=== PATIENT | female | born 1970 | race Caucasian/White ===

== ENCOUNTER 2019-08-14 23:54 | Emergency (ER) | payer SELFPAY ==
--- NOTE | 2019-08-15 01:12 | PDOC ---
Attending Attestation - Resident Resident Name: Saurabh Henderson - ED Attending Attestation I have performed the following: I have examined & evaluated the patient, The case was reviewed & discussed with the resident, I agree w/resident's findings & plan - HPI HPI: 08/15/19 20:57 see resident hpi - Physicial Exam PE: 08/15/19 20:57 agree with resident exam - Medical Decision Making 08/15/19 20:58 48-year-old female with intermittent chest pain, resolved, positional Cardiac enzymes negative x2 CTA of the chest shows no acute abnormality We will DC with recommended outpatient follow-up 08/15/19 20:58
--- NOTE | 2019-08-15 01:19 | PDOC ---
History of Present Illness - General Chief Complaint: Shortness of Breath Stated Complaint: DIFF. BREATHING Time Seen by Provider: 08/15/19 01:11 History Source: Patient Exam Limitations: No Limitations - History of Present Illness Initial Comments: 48 yo F with no past medical history presents to the emergency department with SOB with chest tightness with sudden onset that began overnight. Per the patient , she states it was located in the left chest wall and felt like a pressure without radiation. In addition, she had SOB, nasal congestion, and cough. Her son recently had a URI and she is up to date on her influenza vaccine. Denies recent travels, recent immbolizations, hx of DVT/PE, and recent surgeries. Denies the following: fever, chills, nausea, vomiting, abdominal pain, back pain , dysuria, hematuria, diarrhea, hematochezia, and leg swelling. Allergies: NDKA Past History - Past Medical History Allergies/Adverse Reactions: Allergies Allergy/AdvReac Type Severity Reaction Status Date / Time No Known Allergies Allergy Verified 08/15/19 01:22 Home Medications: Ambulatory Orders NK [No Known Home Medication] 08/15/19 Review of Systems - Review of Systems Able to Perform ROS?: Yes Is the patient limited Kiswahili proficient: No Constitutional: Yes: Weakness. No: Chills, Diaphoresis, Fever HEENTM: Yes: Nose Congestion. No: Eye Pain, Ear Pain, Nose Pain, Throat Pain, Mouth Pain Respiratory: Yes: Cough, Shortness of Breath. No: Hemoptysis Cardiac (ROS): Yes: Chest Pain. No: Lightheadedness, Palpitations, Syncope ABD/GI: No: Constipated, Diarrhea, Nausea, Rectal Bleeding, Vomiting, Tarry Stools : No: Burning, Dysuria, Hematuria Musculoskeletal: No: Back Pain, Joint Pain, Neck Pain Integumentary: No: Bruising, Erythema, Rash Neurological: No: Headache Psychiatric: Yes: Anxiety. No: Change in Appetite Endocrine: No: Flushing, Unexplained Weight Loss Hematologic/Lymphatic: No: Anemia *Physical Exam - Physical Exam General Appearance: Yes: Nourished, Appropriately Dressed. No: Apparent Distress, Intoxicated HEENT: positive: EOMI, KAVYA, Normal Voice, Symmetrical, TMs Normal, Pharynx Normal, Nasal Congestion, Hearing Grossly Normal. negative: Pale Conjunctivae, Scleral Icterus (R), Scleral Icterus (L), Muffled/Hoarse voice, Pharyngeal Erythema, Tonsillar Exudate, Tonsillar Erythema, Rhinorrhea, Sinus Tenderness, Excessive drooling Neck: positive: Trachea midline, Supple. negative: Tender, Lymphadenopathy (R) , Lymphadenopathy (L), Tender lateral, Tender midline Respiratory/Chest: positive: Lungs Clear, Normal Breath Sounds. negative: Chest Tender, Respiratory Distress, Accessory Muscle Use, Crackles, Rales Cardiovascular: positive: Regular Rhythm, Regular Rate, S1, S2. negative: Systolic Murmur Gastrointestinal/Abdominal: positive: Normal Bowel Sounds, Flat, Soft. negative : Tender Lymphatic: negative: Adenopathy Musculoskeletal: positive: Normal Inspection. negative: CVA Tenderness, Vertebral Tenderness Extremity: positive: Normal Capillary Refill, Normal Inspection, Normal Range of Motion, Calf Tenderness (left leg). 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 NML intact, Fully Oriented, Alert, Normal Mood/ Affect, Normal Response, Motor Strength 5/5 Heart Score/ECG Review - History History: Slightly suspicious - Electrocardiogram EKG: Normal - Age Age: 45-65 - Risk Factors Risk Factors Heart Score: Yes Hx Obesity Based on the list above the patient has:: 1-2 risk factors - Troponin Troponin: </= normal limit - Score Heart Score - Total: 2 ED Treatment Course - LABORATORY CBC & Chemistry Diagram: 08/15/19 01:56 08/15/19 01:56 Medical Decision Making - Medical Decision Making 48 yo F with no past medical history presents to the emergency department with SOB with chest tightness with sudden onset that began overnight. Initial vitals: Initial Vital Signs Temp Pulse Resp BP Pulse Ox 98.1 F 71 18 137/64 100 08/14/19 23:55 08/14/19 23:55 08/14/19 23:55 08/14/19 23:55 08/14/19 23:55 Work up: patient presents with SOB CP and cough. Ddx: ACS vs pNA vs URI vs PE vs asthma exacerbation. patient has no wheezing on exam and is aerating well without tachypnea. Patient will receive laboratory work and imaging to rule out ACS and PE. Laboratory Tests 08/15/19 08/15/19 08/15/19 01:56 01:56 02:24 WBC 10.3 H RBC 4.60 Hgb 9.4 L Hct 30.1 L MCV 65.5 L MCH 20.5 L MCHC 31.2 L RDW 21.2 H Plt Count 436 H MPV 7.9 Absolute Neuts (auto) 7.2 Neutrophils % 69.8 Lymphocytes % 19.3 Monocytes % 7.7 Eosinophils % 2.6 Basophils % 0.6 Nucleated RBC % 0 Hypochromia 0 Platelet Estimate Normal Polychromasia 1+ Poikilocytosis 1+ Anisocytosis 1+ Microcytosis 1+ Macrocytosis 0 Spherocytes 1+ Target Cells 1+ Ovalocytes 1+ [place] Cells 1+ Acanthocytes (Spur) 1+ PT with INR INR Sodium 140 Potassium 4.3 Chloride 108 H Carbon Dioxide 24 Anion Gap 7 L BUN 12.1 Creatinine 0.7 Est GFR (CKD-EPI)AfAm 119.58 Est GFR (CKD-EPI)NonAf 103.18 Random Glucose 110 H Calcium 9.0 Total Bilirubin 0.2 AST 13 L ALT 15 Alkaline Phosphatase 99 Creatine Kinase 90 Troponin I < 0.02 Total Protein 7.9 Albumin 3.7 TSH 1.15 Serum , Qual Negative 08/15/19 08/15/19 02:25 05:10 WBC RBC Hgb Hct MCV MCH MCHC RDW Plt Count MPV Absolute Neuts (auto) Neutrophils % Lymphocytes % Monocytes % Eosinophils % Basophils % Nucleated RBC % Hypochromia Platelet Estimate Polychromasia Poikilocytosis Anisocytosis Microcytosis Macrocytosis Spherocytes Target Cells Ovalocytes [place] Cells Acanthocytes (Spur) PT with INR 11.50 INR 0.97 Sodium Potassium Chloride Carbon Dioxide Anion Gap BUN Creatinine Est GFR (CKD-EPI)AfAm Est GFR (CKD-EPI)NonAf Random Glucose Calcium Total Bilirubin AST ALT Alkaline Phosphatase Creatine Kinase Troponin I < 0.02 Total Protein Albumin TSH Serum , Qual CT was negative for PE. Patient's EKG: ventricular rate is 59 bpm; sinus bradycardia with no TWI. No ST elevations or depressions. DVT study negative for DVT. Patient is well appearing at the time of discharge and states she will follow up with PMD within 1 week after discharge. Patient discharged. Discharge - Discharge Information Problems reviewed: Yes Clinical Impression/Diagnosis: Chest wall pain Condition: Improved Disposition: HOME - Admission No - Follow up/Referral Referrals: Zheng Dee MD [Primary Care Provider] - - Patient Discharge Instructions Patient Printed Discharge Instructions: DI for Atypical Chest Pain Additional Instructions: You were seen in the emergency for your chest pain. Please follow up with your primary medical doctor within 1 week after discharge for follow up care and management. Please return if you have worsening symptoms or new concerning symptoms. - Post Discharge Activity
[2019-08-15 01:22] VITALS: BP 137/64; PULSE 71; TEMP 98.1; BMI 32.3
[2019-08-15] MEDS ORDERED: ACETAMINOPHEN 1000 MG/100 ML VIAL (NON FORMULARY) IVPB ONE (01:22)
[2019-08-15] MEDS ORDERED: ACETAMINOPHEN INJECTION 100 ML IVPB ONE (01:59)
[2019-08-15 02:46] LABS: BASO % 0.6 % (0-2.0); EOS % 2.6 % (0-4.5); HEMATOCRIT 30.1 % (32.4-45.2); HEMOGLOBIN 9.4 GM/dL (10.7-15.3); LYMPH % 19.3 % (8-40); MCH 20.5 pg (25.7-33.7); MCHC 31.2 g/dl (32.0-36.0); MEAN CELL VOLUME 65.5 fl (80-96); MEAN PLT VOLUME 7.9 fl (7.5-11.1); MONO % 7.7 % (3.8-10.2); NEUT % 69.8 % (42.8-82.8); PLATELET COUNT 436 K/MM3 (134-434); RDW 21.2 % (11.6-15.6); WHITE BLOOD COUNT 10.3 K/mm3 (4.0-10.0)
[2019-08-15 03:24] LABS: ALBUMIN 3.7 g/dl (3.4-5.0); ALK PHOS 99 U/L (45-117); ANION GAP 7 MMOL/L (8-16); BILIRUBIN,TOTAL 0.2 mg/dL (0.2-1); BLOOD UREA NITROGEN 12.1 mg/dL (7-18); CHLORIDE 108 mmol/L (98-107); CO2 24 mmol/L (21-32); CREATININE 0.7 mg/dL (0.55-1.3); GLUCOSE,RANDOM 110 mg/dL (74-106); POTASSIUM 4.3 mmol/L (3.5-5.1); SGOT/AST 13 U/L (15-37); SGPT/ALT 15 U/L (13-61); SODIUM 140 mmol/L (136-145); TOT PROT 7.9 g/dl (6.4-8.2)
[2019-08-15 03:57] LABS: INR 0.97 (0.83-1.09); PROTHROMBIN TIME (PATIENT) 11.5 SEC (9.7-13.0)
[2019-08-15] MEDS ORDERED: SODIUM CHLORIDE 1,000 ML IV STA (05:13)
[2019-08-15 09:37] LABS: ANISOCYTOSIS 1+; MACROCYTOSIS 0; OVALOCYTE 1+; PLATELET ESTIMATE NORMAL; TARGET CELLS 1+
--- NOTE | 2019-08-15 11:00 | EKG ---
Test Reason : Blood Pressure : / mmHG Vent. Rate : 059 BPM Atrial Rate : 059 BPM P-R Int : 132 ms QRS Dur : 084 ms QT Int : 446 ms P-R-T Axes : 033 049 040 degrees QTc Int : 441 ms SINUS BRADYCARDIA OTHERWISE NORMAL ECG WHEN COMPARED WITH ECG OF 15-AUG-2019 00:04, NO SIGNIFICANT CHANGE WAS FOUND Confirmed by Demetri Clayton MD ([id number]) on 08/15/2019 11:00:17 AM Referred By: Confirmed By:Demetri Clayton MD
== END 2019-08-15 07:18 | disposition home or self-care (01) ==
LOC: JER 23:54
DX: R07.89 Other chest pain (principal)
CPT/HCPCS: 36415; 71275-TC; 80053; 82550; 84443; 84484; 84703; 85025; 85610; 93005; 93010; 93971-TC; 99282-25; J7030; Q9967

== ENCOUNTER 2022-06-14 12:24 | Emergency (ER) | payer OTHER ==
[2022-06-14 13:20] VITALS: BP 107/56; PULSE 77; RESP 19; TEMP 98; BMI 31.3
[2022-06-14] MEDS ORDERED: ACETAMINOPHEN 1000 MG/100 ML BAG IVPB ONE (15:47)
[2022-06-14] MEDS ORDERED: ACETAMINOPHEN INJECTION 100 ML IVPB ONE (15:48)
[2022-06-14 16:08] LABS: BASO % 0.6 % (0-2.0); HEMATOCRIT 42.6 % (32.4-45.2); HEMOGLOBIN 14.1 GM/dL (10.7-15.3); LYMPH % 30.3 % (8-40); MCH 28.7 pg (25.7-33.7); MCHC 33.1 g/dl (32.0-36.0); MEAN CELL VOLUME 86.7 fl (80-96); MEAN PLT VOLUME 8.3 fl (7.5-11.1); MONO % 6.4 % (3.8-10.2); NEUT % 60.7 % (42.8-82.8); PLATELET COUNT 322 10^3/uL (134-434); RBC 4.91 M/mm3 (3.60-5.2); RDW 14.1 % (11.6-15.6)
[2022-06-14 16:20] LABS: EPI CELLS >36 /uL (0-25.1); HYALINE CASTS 7 /uL (0-3.1); URINE APPEARANCE CLOUDY; URINE BACTERIA 1894 /uL (0-1359); URINE BILIRUBIN NEGATIVE (NEGATIVE); URINE COLOR YELLOW; URINE GLUCOSE (UA) NEGATIVE (NEGATIVE); URINE KETONE TRACE (NEGATIVE); URINE LEUK ESTERASE 1+ (NEGATIVE); URINE NITRITE NEGATIVE (NEGATIVE); URINE PROTEIN TRACE (NEGATIVE); URINE UROBILINOGEN 0.2 mg/dL (0.2-1.0); URINE WBC 159 /uL (0-25.8)
[2022-06-14 16:35] LABS: BLOOD UREA NITROGEN 14.8 mg/dL (7-18); CALCIUM 9.5 mg/dL (8.5-10.1)
[2022-06-14 16:36] LABS: ALBUMIN 3.8 g/dl (3.4-5.0)
[2022-06-14 16:38] LABS: CREATININE 0.6 mg/dL (0.55-1.3)
[2022-06-14 16:40] LABS: BILIRUBIN,TOTAL 0.3 mg/dL (0.2-1); TOT PROT 7.8 g/dl (6.4-8.2)
[2022-06-14 16:47] LABS: URINE RBC 85 /uL (0-23.9)
== END 2022-06-14 18:39 | disposition home or self-care (01) ==
LOC: JER 12:24
PROC: 3E0333Z Introduction of Anti-inflammatory into Peripheral Vein, Percutaneous Approach (ICD-10-PCS; principal; 2022-06-14)
DX: R10.9 Unspecified abdominal pain (principal)
CPT/HCPCS: 0241U-QW; 36415; 71046-TC-FY; 80053; 81003; 83690; 85025; 87086; 99284-25